=== PATIENT | male | born 1975 | race Caucasian/White ===

== ENCOUNTER 2017-02-09 12:09 | Emergency (ER) | payer OTHER ==
[2017-02-09 12:17] VITALS: BP 129/78
== END 2017-02-09 13:35 | disposition left against medical advice (07) ==
LOC: ED 12:09
DX: Z53.21 Procedure and treatment not carried out due to patient leaving prior to being seen by health care provider (principal)

== ENCOUNTER 2017-02-13 17:24 | Emergency (ER) | payer MEDICAID ==
[2017-02-13 17:29] VITALS: BP 118/81
== END 2017-02-13 18:15 | disposition left against medical advice (07) ==
LOC: ED 17:24
DX: Z53.21 Procedure and treatment not carried out due to patient leaving prior to being seen by health care provider (principal)

== ENCOUNTER 2020-01-30 21:17 | Emergency (ER) | payer OTHER ==
[~2020-01-30] VITALS: Ht 182.9 cm; Wt 140.6 kg
[2020-01-30 21:28] VITALS: Ht 182.9 cm; Wt 140.6 kg
[2020-01-30 23:22] LABS: BASOPHIL % 0.4 % (0-2); PLATELET COUNT 78 x10^3mcL (130-400); RED CELL DISTRIBUTION WIDTH 19.3 % (11.5-14.5); UA SPECIFIC GRAVITY <=1.005 (1.005-1.035); microscopic required? YES; urine erythrocyte 3+ (NEGATIVE)
[2020-01-30 23:53] VITALS: BP 117/57
[2020-01-30 23:55] LABS: ALKALINE PHOSPHATASE 154 U/L (46-116); ALT/SGPT 33 U/L (16-63); AST/SGOT 97 U/L (15-37); BILIRUBIN TOTAL 1.3 mg/dL (0.20-1.00); CALCIUM 7.8 mg/dL (8.5-10.1); CARBON DIOXIDE 37.4 mmol/L (21-32); CHLORIDE SERUM 84 mmol/L (98-107); CREATININE SERUM 1.2 mg/dL (0.7-1.3); GFR1 > 60 mL/min; GLUCOSE SERUM 96 mg/dL (74-106); LACTIC DEHYDROGENASE (LDH) 361 U/L (100-190); SODIUM SERUM 126 mmol/L (136-145)
[2020-01-30 23:56] LABS: ALBUMIN 2.8 g/dL (3.4-5.0); TOTAL PROTEIN, SERUM 8.4 g/dL (6.4-8.2)
[2020-01-30 23:59] LABS: POTASSIUM SERUM 2.8 mmol/L (3.5-5.1)
== END 2020-01-30 23:53 | disposition left against medical advice (07) ==
LOC: ED 21:17
PROVIDERS: Emergency Medicine
DX: R60.0 Localized edema (principal); E87.6 Hypokalemia
CPT/HCPCS: 36600; 83880; 87804; Q0092

== ENCOUNTER 2020-07-27 15:29 | Inpatient (IN) | payer OTHER ==
[~2020-07-27] VITALS: Ht 182.9 cm; Wt 173.3 kg
[2020-07-27 15:37] VITALS: Ht 182.9 cm; Wt 173.3 kg
[2020-07-27 16:32] LABS: BASOPHIL % 3.2 % (0.2-1.5); PLATELET COUNT 99 x10^3mcL (152-348); RED CELL DISTRIBUTION WIDTH 21.1 % (12.1-16.2)
[2020-07-27 16:49] LABS: ALKALINE PHOSPHATASE 122 U/L (46-116); ALT/SGPT 24 U/L (16-63); AST/SGOT 85 U/L (15-37); CALCIUM 8.3 mg/dL (8.5-10.1); CHLORIDE SERUM 93 mmol/L (98-107); GFR1 > 60 mL/min; GLUCOSE SERUM 108 mg/dL (74-106); SODIUM SERUM 133 mmol/L (136-145)
[2020-07-27 16:53] LABS: ALBUMIN 2.2 g/dL (3.4-5.0); POTASSIUM SERUM 2.6 mmol/L (3.5-5.1); TOTAL PROTEIN, SERUM 8.4 g/dL (6.4-8.2)
[2020-07-27] MEDS ORDERED: METHADONE HC10 MG/M3 PO (17:24)
[2020-07-27] MEDS ORDERED: BUPROPION HCL100 MG PO (17:24)
[2020-07-27 17:53] LABS: microscopic required? YES; urine erythrocyte 3+ (NEGATIVE)
[2020-07-27 23:15] VITALS: BP 122/60
[2020-07-28 05:32] VITALS: BP 102/44
[2020-07-28 08:06] LABS: BASOPHIL % 1.2 % (0.2-1.5)
[2020-07-28 08:15] LABS: PLATELET COUNT 73 x10^3mcL (152-348)
[2020-07-28 08:32] VITALS: BP 116/43
[2020-07-28 08:38] LABS: ALKALINE PHOSPHATASE 108 U/L (46-116); ALT/SGPT 22 U/L (16-63); AST/SGOT 73 U/L (15-37); BILIRUBIN TOTAL 1.9 mg/dL (0.20-1.00); CARBON DIOXIDE 37.5 mmol/L (21-32); CHLORIDE SERUM 94 mmol/L (98-107); CREATININE SERUM 0.9 mg/dL (0.7-1.3); GFR1 > 60 mL/min; GLUCOSE SERUM 101 mg/dL (74-106); MAGNESIUM 1.3 mg/dL (1.8-2.4); SODIUM SERUM 135 mmol/L (136-145); TOTAL PROTEIN, SERUM 7.5 g/dL (6.4-8.2)
[2020-07-28 08:47] LABS: ALBUMIN 1.9 g/dL (3.4-5.0)
[2020-07-28 12:32] LABS: rbc morphology (normal/abnorm) ABNORMAL (NORMAL)
[2020-07-28 12:34] VITALS: BP 111/52
[2020-07-28 13:16] VITALS: BP 109/71
[2020-07-28 17:57] VITALS: BP 110/59
[2020-07-28 20:50] VITALS: BP 111/56
[2020-07-29] VITALS (7 sets, daily range): BP systolic 109–119; BP diastolic 45–63
[2020-07-29 08:28] LABS: ALKALINE PHOSPHATASE 110 U/L (46-116); ALT/SGPT 20 U/L (16-63); AST/SGOT 70 U/L (15-37); BILIRUBIN TOTAL 2.82 mg/dL (0.20-1.00); CALCIUM 8.4 mg/dL (8.5-10.1); CARBON DIOXIDE 39.6 mmol/L (21-32); CHLORIDE SERUM 95 mmol/L (98-107); CREATININE SERUM 1.1 mg/dL (0.7-1.3); GFR1 > 60 mL/min; GLUCOSE SERUM 102 mg/dL (74-106); MAGNESIUM 1.5 mg/dL (1.8-2.4); POTASSIUM SERUM 3.2 mmol/L (3.5-5.1); SODIUM SERUM 136 mmol/L (136-145); TOTAL PROTEIN, SERUM 7.7 g/dL (6.4-8.2)
[2020-07-29 08:44] LABS: BASOPHIL % 1.1 % (0.2-1.5)
[2020-07-29 09:03] LABS: PLATELET COUNT 59 x10^3mcL (152-348); RED CELL DISTRIBUTION WIDTH 22.1 % (12.1-16.2)
[2020-07-29 10:21] LABS: rbc morphology (normal/abnorm) ABNORMAL (NORMAL)
[2020-07-30 05:54] VITALS: BP 117/62
[2020-07-30 06:14] LABS: ALKALINE PHOSPHATASE 115 U/L (46-116); ALT/SGPT 20 U/L (16-63); AST/SGOT 74 U/L (15-37); BILIRUBIN TOTAL 3.06 mg/dL (0.20-1.00); CALCIUM 8.9 mg/dL (8.5-10.1); CARBON DIOXIDE 39.7 mmol/L (21-32); CHLORIDE SERUM 97 mmol/L (98-107); CREATININE SERUM 1.2 mg/dL (0.7-1.3); GFR1 > 60 mL/min; GLUCOSE SERUM 84 mg/dL (74-106); MAGNESIUM 1.6 mg/dL (1.8-2.4); POTASSIUM SERUM 3.6 mmol/L (3.5-5.1); SODIUM SERUM 136 mmol/L (136-145); TOTAL PROTEIN, SERUM 7.7 g/dL (6.4-8.2)
[2020-07-30 07:18] LABS: BASOPHIL % 0.8 % (0.2-1.5)
[2020-07-30 08:04] LABS: PLATELET COUNT 56 x10^3mcL (152-348); RED CELL DISTRIBUTION WIDTH 23.2 % (12.1-16.2)
[2020-07-30 08:13] LABS: rbc morphology (normal/abnorm) ABNORMAL (NORMAL)
[2020-07-30 09:07] VITALS: BP 124/61
[2020-07-30 09:10] VITALS: BP 127/61
[2020-07-30 12:38] VITALS: BP 114/75
[2020-07-30 16:34] VITALS: BP 112/55
[2020-07-30 20:10] VITALS: BP 116/48
[2020-07-31 05:15] VITALS: BP 110/59
[2020-07-31 07:07] LABS: BASOPHIL % 0.7 % (0.2-1.5)
[2020-07-31 08:01] LABS: PLATELET COUNT 61 x10^3mcL (152-348); RED CELL DISTRIBUTION WIDTH 23.3 % (12.1-16.2)
[2020-07-31 08:12] VITALS: BP 120/54
[2020-07-31 08:34] LABS: BILIRUBIN TOTAL 3.2 mg/dL (0.20-1.00); CARBON DIOXIDE 39.9 mmol/L (21-32); CREATININE SERUM 1.4 mg/dL (0.7-1.3); MAGNESIUM 1.4 mg/dL (1.8-2.4); POTASSIUM SERUM 3.4 mmol/L (3.5-5.1); TOTAL PROTEIN, SERUM 7.9 g/dL (6.4-8.2)
[2020-07-31 08:42] LABS: ALBUMIN 2.1 g/dL (3.4-5.0)
[2020-07-31 10:52] LABS: rbc morphology (normal/abnorm) ABNORMAL (NORMAL)
[2020-07-31 12:45] VITALS: BP 118/65
[2020-07-31 16:07] VITALS: BP 104/78
[2020-07-31 21:16] VITALS: BP 122/70
[2020-08-01] VITALS (7 sets, daily range): BP systolic 107–125; BP diastolic 51–69
[2020-08-01 07:17] LABS: BASOPHIL % 1.3 % (0.2-1.5)
[2020-08-01 07:33] LABS: BILIRUBIN TOTAL 3.44 mg/dL (0.20-1.00); CALCIUM 8.8 mg/dL (8.5-10.1); CREATININE SERUM 1.5 mg/dL (0.7-1.3); MAGNESIUM 1.6 mg/dL (1.8-2.4); POTASSIUM SERUM 3.3 mmol/L (3.5-5.1)
[2020-08-01 08:02] LABS: PLATELET COUNT 69 x10^3mcL (152-348); RED CELL DISTRIBUTION WIDTH 23.9 % (12.1-16.2)
[2020-08-01 08:09] LABS: ALBUMIN 2.1 g/dL (3.4-5.0)
[2020-08-01 08:10] LABS: CARBON DIOXIDE 40.8 mmol/L (21-32)
[2020-08-01] MEDS ORDERED: LASIX80 MG PO (12:16)
[2020-08-01] MEDS ORDERED: BACTRIM DS1 TAB PO ×2 (12:17)
[2020-08-01] MEDS ORDERED: FORTAMET1000 MG PO (12:17)
[2020-08-01] MEDS ORDERED: AUGMENTIN 875-1 EACH PO (12:17)
[2020-08-02 04:59] VITALS: BP 128/61
[2020-08-02 09:48] VITALS: BP 114/49
[2020-08-02 13:02] VITALS: BP 101/53
[2020-08-02 17:47] VITALS: BP 113/55
[2020-08-02 20:38] VITALS: BP 123/58
[2020-08-02 20:53] VITALS: BP 113/55
[2020-08-03 06:01] VITALS: BP 116/53
[2020-08-03 06:40] LABS: BASOPHIL % 1.2 % (0.2-1.5)
[2020-08-03 06:48] LABS: CALCIUM 8.5 mg/dL (8.5-10.1); CREATININE SERUM 1.5 mg/dL (0.7-1.3); POTASSIUM SERUM 3.7 mmol/L (3.5-5.1)
[2020-08-03 06:56] LABS: CARBON DIOXIDE 41.2 mmol/L (21-32)
[2020-08-03 07:21] LABS: PLATELET COUNT 88 x10^3mcL (152-348); RED CELL DISTRIBUTION WIDTH 23.6 % (12.1-16.2)
[2020-08-03 09:11] VITALS: BP 100/61
[2020-08-03 10:44] LABS: rbc morphology (normal/abnorm) ABNORMAL (NORMAL)
[2020-08-03 12:18] VITALS: BP 115/58
[2020-08-03 16:48] VITALS: BP 110/53
[2020-08-03 17:03] VITALS: BP 110/53
[2020-08-03 21:04] VITALS: BP 158/90
[2020-08-04 05:19] VITALS: BP 97/53
[2020-08-04 07:32] LABS: IRON 79 ug/dL (65-170); TOTAL IRON BINDING CAPACITY 245 ug/dL (250-450)
[2020-08-04 08:42] VITALS: BP 130/59
[2020-08-04 11:06] LABS: CALCIUM 8.5 mg/dL (8.5-10.1); CREATININE SERUM 1.7 mg/dL (0.7-1.3); POTASSIUM SERUM 3.7 mmol/L (3.5-5.1)
[2020-08-04 11:09] LABS: CARBON DIOXIDE 41.6 mmol/L (21-32)
[2020-08-04 12:39] VITALS: BP 132/61
[2020-08-04 14:55] VITALS: BP 132/61
[2020-08-04] MEDS ORDERED: POTASSIUM CHLO20 ME4 PO (15:43)
[2020-08-04] MEDS ORDERED: IRON65 MG PO (15:43)
[2020-08-04 17:39] VITALS: BP 121/52
[2020-08-04 20:09] VITALS: BP 117/65
[2020-08-05 05:11] VITALS: BP 122/67
[2020-08-05 08:30] VITALS: BP 132/54
[2020-08-05 12:12] VITALS: BP 114/61
== END 2020-08-05 14:40 | disposition home or self-care (01) | DRG 501 ==
LOC: ED 15:29 → DU 18:53
PROVIDERS: Emergency Medicine; Internal Medicine; ADMIT Hospitalist; ATTEND Hospitalist
PROC: 30233N1 Transfusion of Nonautologous Red Blood Cells into Peripheral Vein, Percutaneous Approach (ICD-10-PCS; principal; 2020-07-28)
DX: N49.2 Inflammatory disorders of scrotum (principal); I11.0 Hypertensive heart disease with heart failure; L03.115 Cellulitis of right lower limb; F11.20 Opioid dependence, uncomplicated; I50.9 Heart failure, unspecified; E66.01 Morbid (severe) obesity due to excess calories; E83.42 Hypomagnesemia; L03.116 Cellulitis of left lower limb; Z20.822 Contact with and (suspected) exposure to COVID-19; Z60.2 Problems related to living alone; E87.6 Hypokalemia; I87.2 Venous insufficiency (chronic) (peripheral); D64.9 Anemia, unspecified; Z68.34 Body mass index [BMI] 34.0-34.9, adult
CPT/HCPCS: 82962; 97110-GP; 97116-GP; 97530-GP; G0378; J1815; J1940; J2270; J2405; J2543; J3370; J3475; J3480; J7030; J7050; P9016; U0003